=== PATIENT | female | born 1990 | race Caucasian/White ===

== ENCOUNTER 2022-08-01 12:45 | Emergency (ER) | payer SELFPAY ==
[2022-08-01 12:50] VITALS: PULSE 71; RESP 18; TEMP 36.3; O2SAT 99
[2022-08-01] MEDS: Methocarbamol 500 MG TAB PO (13:20)
[2022-08-01] MEDS: Ketorolac 15 MG/ML VIAL IM (13:20)
[2022-08-01] MEDS: Lidocaine 5% Patch 1 PATCH TP (13:21)
--- NOTE | 2022-08-01 13:28 | ED.GENADUL_ITS ---
Discharge Plan Disposition Patient Disposition: Home Discharge Details Clinical Impression: Acute thoracic myofascial strain Primary Care Provider: Meme,Local ED Provider: Lan Mann Home Meds and New Rx's Prescriptions: New methocarbamol 500 mg tablet 500 mg PO TID PRN (Reason: muscle spasm) Qty: 20 0RF ketorolac 10 mg tablet 10 mg PO TID PRN (Reason: pain) Qty: 15 0RF Continued acetaminophen [Acetaminophen Extra Strength] 500 mg Tablet 500 mg PO Q6H PRN Held ibuprofen 600 mg Tablet 600 mg PO Q8H PRN Hold Instructions: While on prescription medication do not take ibuprofen, aspirin, Aleve Discharge Instructions Instructions: Thoracic Back Strain (ED) Additional Instructions: Please take medications as prescribed and perform stretching as tolerated. Feel free to return for new or worsening symptoms otherwise follow-up with primary care provider or urgent care for reassessment if not improving this next week. Referrals: Primary Care Provider [Outside] - 1 week (If not improving) Medical Decision Making Patient presenting to the emergency department for chief complaint of mid upper back pain. Significant other states that patient did bend over and have a twisting type injury 2 weeks ago but pain has been mild up until the last 2 days. Patient denies any other symptoms. She did have a fall a couple months ago with injury to her lower back and coccyx which that has improved drastically. Physical exam shows mainly muscular tenderness to the upper and mid thoracic spinal tissue including right subscapular musculature. Exam is otherwise unremarkable. Patient denies chest pain shortness of breath or other symptoms. Suspect thoracic strain but exam and review of systems show low likelihood of aortic aneurysm, fracture, severe neuropathy or spinal stenosis. We will give patient Robaxin, IM Toradol, and lidocaine patch. Will reassess for clinical effect. Patient had significant improvement of symptoms, better range of motion of upper extremities without pain. Will prescribe ketorolac and Robaxin for patient's continued discomfort. After discussion of diagnosis and plan of care patient has no further needs, questions, or concerns and states clear understanding to return to the emergency department for any worsening symptoms. This documentation was generated using Vidmindation system, please disregard any oddities of phrase or misspellings. HPI General Mode of arrival: ambulatory . Date/Time Provider Initiated Documentation: 08/01/22 12:50 . Limitations to Documentation: no limitations . Information obtained by: patient and RN notes reviewed . History of Present Illness 31 year old F presents to the emergency department with the chief complaint of Upper back pain, described as moderate, with intensity rated at 9. Quality is described as sharp, and is localized to the back. Patient extremity (Right arm). Patient started experiencing this day(s) (2) and it has been constant. Immobilization improves symptom(s), Movement worsens symptoms . Patient notes no other symptoms.. Patient did receive the following treatments prior to arrival, other (Acetaminophen) Related Data Home Medications Medication Instructions Recorded Confirmed acetaminophen 500 mg tablet 500 mg PO Q6H PRN 08/01/22 08/01/22 (Acetaminophen Extra Strength) ibuprofen 600 mg tablet 600 mg PO Q8H PRN 08/01/22 08/01/22 ketorolac 10 mg tablet 10 mg PO TID PRN pain #15 tabs 08/01/22 methocarbamol 500 mg tablet 500 mg PO TID PRN muscle spasm #20 08/01/22 tabs Previous Rx's Medication Instructions Recorded ketorolac 10 mg tablet 10 mg PO TID PRN pain #15 tabs 08/01/22 methocarbamol 500 mg tablet 500 mg PO TID PRN muscle spasm #20 08/01/22 tabs Allergies Allergy/AdvReac Type Severity Reaction Status Date / Time No Known Allergies Allergy Unverified 08/01/22 12:53 General Stated Complaint: Nk/Back Pain ALINA: 4 Review of Systems Constitutional Constitutional: Denies chills and Denies fever(s) Cardiovascular Cardiovascular: Denies chest pain and Denies dyspnea Respiratory Respiratory: Denies cough and Denies dyspnea Gastrointestinal Gastrointestinal: Denies abdominal pain Musculoskeletal Musculoskeletal: Reports as per HPI, Reports back pain and Denies numbness Integumentary/Breasts Skin/Breast: Denies rash Neurologic Neurologic: Denies numbness PFSH All Active Problems (Updated 08/01/22 @ 14:10 by Lan Mann NP) Acute thoracic myofascial strain (Acute) Social History Smoking risk assessment performed?: No Female Reproductive History Menstrual Date of last menstrual period: 07/31/22 Exam Const General: cooperative, no acute distress and not ill appearing Orientation: alert, awake and oriented x3 HENMT Mouth: moist mucous membranes Resp Effort & Inspection: normal respiratory effort, able to speak in complete sentences and no respiratory distress Auscultation: clear to auscultation bilaterally Cardio Rate: regular rate Rhythm: regular rhythm Back/Spine/Pelvis Cervical Spine: normal cervical lordosis, cervical ROM normal and No cervical spinal tenderness Thoracic/Lumbar Spine: pain with thoraco-lumbar ROM, paraspinal tenderness, thoraco-lumbar ROM limited, thoracic spinal tenderness, No lumbar spinal tenderness and other (Thoracic paraspinal spasm) Skin General skin exam: no rashes or lesions noted Neuro General: patient alert, patient awake, patient oriented x3, moves all extremities and no focal motor deficits Extrem Right upper extremity: shoulder/upper arm Details: tenderness Location: other (Subscapular muscular tissue) and abnormal ROM Details: pain with active ROM and pain with passive ROM Course Vital Signs Vital signs: Vital Signs Temperature 36.3 C L 08/01/22 12:50 Pulse 71 08/01/22 12:50 Respiratory Rate 18 08/01/22 12:50 Pulse Oximetry 99 08/01/22 12:50 Temperature 36.3 C L 08/01/22 12:50 Temperature Source Tympanic 08/01/22 12:50 Pulse 71 08/01/22 12:50 Respiratory Rate 18 08/01/22 12:50 Respiratory Effort Normal, Non-Labored 08/01/22 12:56 Blood Pressure Position Sitting 08/01/22 12:50 Pulse Oximetry 99 08/01/22 12:50 Oxygen Delivery Method Room Air 08/01/22 12:50 Oxygen Flow Rate 0 08/01/22 12:50
== END 2022-08-01 14:21 | disposition home or self-care (01) ==
PROVIDERS: Emergency Provider Nurse Practitioner Family
DX: S29.012A Strain of muscle and tendon of back wall of thorax, initial encounter (principal); X50.9XXA Other and unspecified overexertion or strenuous movements or postures, initial encounter
CPT/HCPCS: 96372; 99283; J1885

== ENCOUNTER 2023-02-24 10:57 | Emergency (ER) | payer SELFPAY ==
[2023-02-24 11:06] VITALS: BP 100/43; PULSE 82; RESP 20; TEMP 37.2; O2SAT 100
--- NOTE | 2023-02-24 11:10 | ED.GENADUL_ITS ---
Discharge Plan Disposition Patient Disposition: Home Condition: Stable Discharge Details Clinical Impression: Abdominal pain of unknown cause Primary Care Provider: Meme,Local ED Provider: Levi Carr Home Meds and New Rx's Prescriptions: New ondansetron 4 mg tablet,disintegrating 4 mg PO Q8H PRN (Reason: nausea/vomiting) Qty: 30 0RF famotidine 20 mg tablet 20 mg PO BID Qty: 30 0RF Continued acetaminophen [Acetaminophen Extra Strength] 500 mg Tablet 500 mg PO Q6H PRN methocarbamol 500 mg tablet 500 mg PO TID PRN (Reason: muscle spasm) Qty: 20 0RF ketorolac 10 mg tablet 10 mg PO TID PRN (Reason: pain) Qty: 15 0RF No Action ibuprofen 600 mg Tablet 600 mg PO Q8H PRN Hold Instructions: While on prescription medication do not take ibuprofen, aspirin, Aleve Discharge Instructions Instructions: Famotidine (By mouth), Ondansetron (By mouth), Abdominal Pain (ED) Additional Instructions: You were seen in the emergency department for your lower abdominal pain with nausea and vomiting. Your labs are all reassuring but there is no significant infection, you are not septic, your CT scan is normal and shows no pathology in the abdomen whatsoever. You do not have appendicitis, you do not have large ovarian cysts or ovarian torsion, you do not have a tubo-ovarian abscess, you do not have a small bowel obstruction there are no gallbladder stone seen. It is possible that you may have gastritis as in your medications you are taking multiple forms of NSAIDs. You may need to follow-up with an upper endoscopy where a camera will be inserted down your esophagus into the stomach. I have sent an antinausea medicine called ondansetron to [facility] in [place], take this 20 to 30 minutes before meals 3 times per day to aid in keeping food and fluids down. I have also sent tablets of famotidine which should help if you have an ulcer in your stomach which can be irritating with p.o. intake. Please take this twice per day for 15 days. Please return to the emergency department should you have increasing pain, take [id number] laxatives for your mild constipation. Take Tylenol regularly 1000 mg 4 times per day for generalized pain. Referrals: [facility] [Provider Group] [facility] [Provider Group] [facility] [Provider Group] Medical Decision Making This dictation utilizes [id number] dictation software and may contain unedited grammatical errors. 32 y/o F, Welsh-speaking, presents to ED today with a chief complaint of abdominal pain, nausea/vomiting. Onset and characteristics include severe mid- abdominal pain starting yesterday, worse with palpation, denies , denies diarrhea, endorses feeling hot without fever, denies recent illness. Patient medical history- otherwise healthy, denies surgical abdominal history. Family and social history: noncontributory. Pertinent exam findings / vital signs include + rebound tenderness, McBurney's point tenderness, nontoxic vitals- mildly hypotensive, question result of vomiting, no CVA tenderness bilaterally, benign cardiopulmonary exam. Differential / pathologies of concern include appendicitis, gastroenteritis, SBO, peptic ulcer disease, gastritis, biliary colic, pyelonephritis or infected kidney stone, diverticulitis, volvulus or other emergent abdominal pathology, TOA, Ovarian Cyst. Diagnostic studies of: -CBC, CMP, Lipase, UA, Upreg, CRP/ESR, Lactate, Mg++, CT ABD/Pelvis w/ Contrast. -Urinalysis shows significant proteinuria with ketones and large blood, question renal pathology -CRP elevated with a normal sed rate -CMP fairly benign with mild hypokalemia likely from vomiting, mild hypomagnesemia -CBC shows no leukocytosis -Lipase within normal limits -Lactate negative -CT ABD/Pelvis w/ Contrast shows no acute pathology. Interventions of: -1L NS IVF, IV APAP, IV Toradol, IV Dilaudid, IV Zofran, IV Famotidine. ED Course: Patient had no episodic vomiting here in the emergency department was comfortable with 1 dose of analgesia, labs and CT are all benign but with the patient's significant proteinuria hematuria its possible she just finished her menses. There is no sign of an active kidney stone or infected kidney stone or hydronephrosis. She could have gastroenteritis and I am planning to prescribe ondansetron. Findings not consistent with appendicitis, TOA, ovarian cyst/torsion, SBO, hydronephrosis, ureteral stone, diverticulitis- patient has reassuring labs and normal CT, possible gastroenteritis, but possible passed kidney stone as well. Disposition of Abdominal Pain of Unknown Cause. Assessment/Plan: Counseled the patient on her reassuring labs and normal CT and that there is not likely emergent pathology, I did awake overnight counselor her to try to establish primary care in the area and provided ondansetron by prescription. I counseled her that she may have passed a kidney stone but there is no evidence of any current pathology on imaging. Counseled her to return to the emergency department for any acute worsening especially with inability to handle p.o. intake. Patient verbalized understanding of the plan and return to ED criteria and engaged in shared decision making. Medical Records Medical records reviewed: Yes I reviewed the patient's medical records. Imaging Data Radiologic Study: Imaging: CT Scan Radiologist's impression: CT ABDOMEN PELVIS W EXAM: CT ABDOMEN PELVIS W CLINICAL HISTORY: ABD pain, severe TECHNIQUE: Imaging Protocol: Axial computed tomography images with coronal and sagittal reformatted images were created and reviewed CONTRAST MATERIAL: Intravenous: Omnipaque 350 Contrast volume:100 mL Oral: No COMPARISON: No exams were available for comparison FINDINGS: The examination is limited due to patient motion artifact. ABDOMEN: Lung Bases: Normal where visualized. Liver: Normal density. No measurable mass. Portal, Superior Mesenteric, and Splenic Veins: Unremarkable. Gallbladder and Biliary Tract: No radiodense calculus or dilation. Pancreas: Normal density, no abnormal calcifications or inflammatory process. Spleen: Normal. Adrenals: No masses seen. Kidneys: Normal size, contour and axis. No radiodense stones or obstructive uropathy. No masses seen. Abdominal Aorta: Abdominal portion non-dilated. Bowel: No obstruction or bowel wall thickening. Appendix is unremarkable. Peritoneal Cavity: There is a trace amount of free fluid in the cul-de-sac which is likely physiologic. No free air. Lymph Nodes: Within normal limits. Bones: Within normal limits for the patient's age. Soft Tissues: Unremarkable. PELVIS: Bladder: Symmetric distention, no gross wall thickening. Reproductive Organs: Unremarkable as visualized. Lymph Nodes: Within normal limits. Bones: Within normal limits for the patient's age. IMPRESSION: 1. No acute abdominal or pelvic process. 2. Normal appendix. 3. Findings were discussed with Levi Carr at 1:47 p.m. on 02/24/2023. Lab Data Lab results reviewed: Yes I reviewed the patient's lab results. Labs: Laboratory Tests Range/Units 02/24/23 02/24/23 02/24/23 11:17 11:35 11:35 WBC (4.4-10.8) 10^3/uL 7.77 RBC (3.93-5.22) 10^6/uL 4.81 Hgb (11.2-15.7) g/dL 14.1 Hct (36.0-46.0) % 41.6 MCV (80-95) fL 87 MCH (27.0-33.0) pg 29.3 MCHC (32.0-36.0) % 33.9 RDW (11.7-14.6) % 12.3 Plt Count (130-400) 10^3/uL 195 MPV (8.0-11.0) fL 9.3 Immature Gran % 0.3 Neutrophils % 88.0 Lymphocytes % 5.5 Monocytes % 5.3 Eosinophils % 0.5 Basophils % 0.4 Nucleated RBC % (0.0-0.3) % 0.0 Absolute Neutrophils (1.2-6.7) 10^3/uL 6.84 H Absolute Lymphocytes (1.2-3.4) 10^3/uL 0.43 L Absolute Monocytes (0.1-0.8) 10^3/uL 0.41 Absolute Eosinophils (0.0-0.7) 10^3/uL 0.04 Absolute Basophils (0.0-0.2) 10^3/uL 0.03 ESR (0-20) mm/hr 7 VBG Lactate (0.6-1.4) mmol/L 0.6 Sodium (136-145) mmol/L 139 Potassium (3.5-5.1) mmol/L 3.3 L Chloride (98-107) mmol/L 102 Carbon Dioxide (21.0-32.0) mmol/L 26.0 Anion Gap (3-11) mmol/L 11.0 BUN (7-18) mg/dL 17 Creatinine (0.55-1.02) mg/dL 0.7 Est GFR (CKD-EPI 2020) (mL/min/1.73m2) 119.24 Glucose (74-106) mg/dL 118 H Calcium (8.5-10.1) mg/dL 8.9 Magnesium (1.8-2.4) mg/dL 1.6 L Total Bilirubin (0.2-1.0) mg/dL 0.7 AST (15-37) U/L 23 ALT (14-59) U/L 40 Alkaline Phosphatase (46-116) U/L 53 C-Reactive Protein (0.0-0.3) mg/dL 1.06 H Cancelled Total Protein (6.4-8.2) g/dL 7.8 Albumin (3.4-5.0) g/dL 3.9 Lipase (16-77) U/L 32 Urine Color (Yellow) Yellow Urine Clarity (Clear) Sl Cloudy Urine pH (5-8) 7.0 Ur Specific [place] (1.005-1.025) 1.025 Urine Protein (Negative) mg/dL >=300 H Urine Ketones (Negative) mg/dL 40 H Urine Blood (Negative) Large H Urine Nitrite (Negative) Negative Urine Bilirubin (Negative) Negative Urine Urobilinogen (Up to 0.2) mg/dL 1.0 H Ur Leukocyte Esterase (Negative) Negative Urine RBC (0-2) HPF 20-50 H Urine WBC (0-5) HPF 0-2 Ur Epithelial Cells (Negative) HPF Moderate Urine Crystals (Negative) HPF Negative Urine Bacteria (Negative) HPF Moderate Urine Casts (Negative) LPF Negative Urine Mucus (Negative) Moderate Ur Culture Indicated? No/Sq. Contamination Urine Glucose (Negative) mg/dL Negative HPI General Date/Time Provider Initiated Documentation: 02/24/23 11:10 . HPI Narrative: 32 year-old female presents to ED today by POV/ambulating, Welsh-speaking only, with a chief complaint of severe centralized abdominal pain, nausea, vomiting with onset yesterday. Quality described as diffuse severe abdominal pain, no radiation to dysuria, endorses some constipation, denies overt fever but feels hot, endorses nausea/vomiting, but has nothing left to vomit at this time, denies chest pain/syncope. Severity is described as 10/10. Palliating factors include nothing specific attempted. Provoking factors include nothing specific. Events leading up to the incident/Associated Symptoms: Patient denies possibility of , denies history of abdominal surgeries. Patient not anticoagulated. Related Data Home Medications Medication Instructions Recorded Confirmed acetaminophen 500 mg tablet 500 mg PO Q6H PRN 08/01/22 08/01/22 (Acetaminophen Extra Strength) ibuprofen 600 mg tablet 600 mg PO Q8H PRN 08/01/22 08/01/22 ketorolac 10 mg tablet 10 mg PO TID PRN pain #15 tabs 08/01/22 methocarbamol 500 mg tablet 500 mg PO TID PRN muscle spasm #20 08/01/22 tabs famotidine 20 mg tablet 20 mg PO BID gastritis #30 tabs 02/24/23 ondansetron 4 mg disintegrating 4 mg PO Q8H PRN nausea/vomiting 02/24/23 tablet #30 tabs Previous Rx's Medication Instructions Recorded ketorolac 10 mg tablet 10 mg PO TID PRN pain #15 tabs 08/01/22 methocarbamol 500 mg tablet 500 mg PO TID PRN muscle spasm #20 08/01/22 tabs famotidine 20 mg tablet 20 mg PO BID gastritis #30 tabs 02/24/23 ondansetron 4 mg disintegrating 4 mg PO Q8H PRN nausea/vomiting 02/24/23 tablet #30 tabs Allergies Allergy/AdvReac Type Severity Reaction Status Date / Time No Known Allergies Allergy Unverified 08/01/22 12:53 General Stated Complaint: Abd Prob ALINA: 3 Review of Systems All systems reviewed & are unremarkable except as noted in HPI and below PFSH All Active Problems (Updated 02/24/23 @ 13:59 by DANYELLE Holloway) Abdominal pain of unknown cause (Acute) Social History Smoking/Tobacco Use Status: Never Smoking risk assessment performed?: Yes Alcohol Intake: never Drug use: Never Substance use type: does not use Housing: house Do you feel safe at home: Yes Do you feel safe in your relationship?: Yes Exam Narrative Exam Narrative: GENERAL APPEARANCE: Well-nourished, non-toxic, awake and alert, atraumatic, no acute distress. SKIN: Warm, normal for ethnicity, dry, intact, without rashes/lesions/ulcerations. HEAD: Normocephalic, atraumatic, normal hair distribution for gender/age. EYES: Pupils PERRLA, EOMs intact without nystagmus, normal conjunctiva, no exudates on lids/lashes. ENT: Nares patent, no circumoral cyanosis, no facial swelling NECK: Supple, trachea midline, painless cervical ROM. LUNGS/CHEST: Lungs CTA bilaterally - no rhonchi/rales/wheezes diffusely, non- labored respirations, normal A/P diameter, symmetrical expansion, no chest wall deformity HEART (CV/PV): Regular rate and rhythm without murmur, no peripheral edema, no JVD. ABDOMEN: Normoactive bowel sounds, soft, non-distended, voluntary guarding, exquisite tenderness with rebound tenderness across mid-abdomen, no CVA tenderness to percussion bilaterally, McBurney's point tenderness, negative Welch's sign. MSK: Normal ROM, no swelling/deformity to bilateral UEs or LEs, moving all extremities without weakness, no cyanosis, spine midline without tenderness, normal curvature. NEURO: Mental Status AAOx4 - alert to person, place, time, events No facial droop, no forehead involvement. Motor: No focal weakness - strength 5/5 in bilateral UEs and LEs, proximal and distal, symmetric. Sensory: sensation intact to light touch globally. Gait normal: patient ambulated without ataxia into ED room. PSYCH: euthymic, cooperative, pleasant, appropriate speech Course Vital Signs Vital signs: Vital Signs Temperature 37.2 C 02/24/23 11:06 Pulse 82 02/24/23 11:06 Respiratory Rate 20 02/24/23 11:06 Blood Pressure 100/43 L 02/24/23 11:06 Pulse Oximetry 100 02/24/23 11:06 Temperature 37.2 C 02/24/23 11:06 Temperature Source Oral 02/24/23 11:06 Pulse 82 02/24/23 11:06 Respiratory Rate 20 02/24/23 11:06 Blood Pressure 100/43 L 02/24/23 11:06 Blood Pressure Position Sitting 02/24/23 11:06 Pulse Oximetry 100 02/24/23 11:06 Oxygen Delivery Method Room Air 02/24/23 11:06 Oxygen Flow Rate 0 02/24/23 11:06
--- NOTE | 2023-02-24 11:15 | DI.CT_ITS ---
Exam(s) CT ABDOMEN PELVIS W EXAM: CT ABDOMEN PELVIS W CLINICAL HISTORY: ABD pain, severe TECHNIQUE: Imaging Protocol: Axial computed tomography images with coronal and sagittal reformatted images were created and reviewed CONTRAST MATERIAL: Intravenous: Omnipaque 350 Contrast volume:100 mL Oral: No COMPARISON: No exams were available for comparison FINDINGS: The examination is limited due to patient motion artifact. ABDOMEN: Lung Bases: Normal where visualized. Liver: Normal density. No measurable mass. Portal, Superior Mesenteric, and Splenic Veins: Unremarkable. Gallbladder and Biliary Tract: No radiodense calculus or dilation. Pancreas: Normal density, no abnormal calcifications or inflammatory process. Spleen: Normal. Adrenals: No masses seen. Kidneys: Normal size, contour and axis. No radiodense stones or obstructive uropathy. No masses seen. Abdominal Aorta: Abdominal portion non-dilated. Bowel: No obstruction or bowel wall thickening. Appendix is unremarkable. Peritoneal Cavity: There is a trace amount of free fluid in the cul-de-sac which is likely physiologi c. No free air. Lymph Nodes: Within normal limits. Bones: Within normal limits for the patient's age. Soft Tissues: Unremarkable. PELVIS: Bladder: Symmetric distention, no gross wall thickening. Reproductive Organs: Unremarkable as visualized. Lymph Nodes: Within normal limits. Bones: Within normal limits for the patient's age. IMPRESSION: 1. No acute abdominal or pelvic process. 2. Normal appendix. 3. Findings were discussed with Levi Carr at 1:47 p.m. on 02/24/2023. RADIATION DOSE DELIVERED: Total DLP DATA REPOSITORY: All CT scans at this facility are submitted to the National Radiology Data Registry (NRDR) Dose Index Registry (DIR) with the [employer] (ACR). RADIATION OPTIMIZATION: All CT scans at this facility use at least one of these dose optimization te chniques: automated exposure control; mA and/or kV adjustment per patient size (includes targeted exa ms where dose is matched to clinical indication); or iterative reconstruction.
[2023-02-24 11:26] LABS: Bilirubin Negative (Negative); Blood Large (Negative); Clarity Sl Cloudy (Clear); Glucose Negative (Negative); Ketones 40 mg/dL (Negative); Leukocyte Esterase Negative (Negative); Nitrite Negative (Negative); Specific Gravity 1.025 (1.005-1.025)
[2023-02-24 11:33] LABS: Bacteria Moderate HPF (Negative); C & S Indicated? No/Sq. Contamination; Casts Negative LPF (Negative); Crystals Negative HPF (Negative); Epithelial Cells Moderate HPF (Negative); Mucus Moderate (Negative); RBC 20-50 HPF (0-2); WBC 0-2 HPF (0-5)
[2023-02-24 11:42] LABS: Abs Immature Grans 0.02 10^3/uL (0.0-0.06); Absolute Basophil Count 0.03 10^3/uL (0.0-0.2); Absolute Eosinophil Count 0.04 10^3/uL (0.0-0.7); Absolute Lymphocyte Count 0.43 10^3/uL (1.2-3.4); Absolute Monocyte Count 0.41 10^3/uL (0.1-0.8); Absolute Neutrophil Count 6.84 10^3/uL (1.2-6.7); Basophils % 0.4; Eosinophils % 0.5; HCT 41.6 % (36.0-46.0); HGB 14.1 g/dL (11.2-15.7); Immature Grans % 0.3; Lactate 0.6 mmol/L (0.6-1.4); Lymphocytes % 5.5; MCH 29.3 pg (27.0-33.0); MCHC 33.9 % (32.0-36.0); MCV 87 fL (80-95); MPV 9.3 fL (8.0-11.0); Monocytes % 5.3; Platelet Count 195 10^3/uL (130-400); RBC 4.81 10^6/uL (3.93-5.22); RDW 12.3 % (11.7-14.6); RDW-SD 39.2 fL; WBC 7.77 10^3/uL (4.4-10.8)
[2023-02-24 11:44] LABS: ESR 7 mm/hr (0-20)
[2023-02-24 11:59] LABS: ALT 40 U/L (14-59); AST 23 U/L (15-37); Albumin 3.9 g/dL (3.4-5.0); Alkaline Phosphatase 53 U/L (46-116); BUN 17 mg/dL (7-18); Bilirubin, Total 0.7 mg/dL (0.2-1.0); C-Reactive Protein 1.06 mg/dL (0.0-0.3); CREATININE 0.7 mg/dL (0.55-1.02); Calcium 8.9 mg/dL (8.5-10.1); Chloride 102 mmol/L (98-107); Estimated GFR 119.24 (mL/min/1.73m2); Glucose 118 mg/dL (74-106); Lipase 32 U/L (16-77); Magnesium 1.6 mg/dL (1.8-2.4); Potassium 3.3 mmol/L (3.5-5.1); Sodium 139 mmol/L (136-145); Total Protein 7.8 g/dL (6.4-8.2)
[2023-02-24] MEDS: Normal Saline 1,000 ML 1000 ML IV (12:01)
[2023-02-24] MEDS: Ketorolac 15 MG/ML VIAL IVP (12:03)
[2023-02-24] MEDS: Ondansetron 4 MG/2 ML VIAL IVP (12:03)
[2023-02-24] MEDS: FAMOTIDINE 20 MG in Normal Saline 100 ML 400 MG IVPB (12:03)
[2023-02-24] MEDS: HYDROmorphone 2 MG/ML SYR 0.5 MG IVP (12:04)
[2023-02-24] MEDS: ACETAMINOPHEN 1,000 MG/100 ML BTL 400 MG IVPB (12:05)
[2023-02-24] MEDS: Omnipaque 350 MG/ML 500 ML BTL-Imaging package IJ (12:55)
[2023-02-24] MEDS: Normal Saline Flush 10 ML SYR IVP (12:56)
[2023-02-24] MEDS: Normal Saline - Diluent 50 ML VIAL IJ (12:57)
[2023-02-24 14:16] VITALS: BP 91/49; PULSE 68; TEMP 36.7; O2SAT 99
== END 2023-02-24 14:26 | disposition home or self-care (01) ==
PROVIDERS: Emergency Provider Physician Assistant
DX: R10.84 Generalized abdominal pain (principal); R11.2 Nausea with vomiting, unspecified
CPT/HCPCS: 36415; 80053; 81025; 83690; 85652; 96361; 96374; 96375; 99285; 74177; 81003; 81015; 83605; 83735; 85025; 86140; 99284; J0131; J1170; J1885; J2405

== ENCOUNTER 2024-03-30 02:03 | Outpatient (CLI) | payer SELFPAY ==
--- NOTE | 2024-03-30 | DI.RAD_ITS ---
Exam(s) XR CHEST 2V PA LATERAL EXAM: XR CHEST 2V PA LATERAL CLINICAL HISTORY: Chest pain, R07.9 TECHNIQUE: 2D digital imaging was performed. Two views. COMPARISON: No exams were available for comparison FINDINGS: HEART: Normal size. Aorta: Not dilated. PULMONARY VASCULATURE: Normal. MEDIASTINUM: Unremarkable. LUNGS: Clear. PLEURAL SPACE: No pleural effusion or pneumothorax. BONE:Unremarkable for age. SOFT TISSUES: Unremarkable. IMPRESSION: No acute abnormality. DATA REPOSITORY: RADIATION DOSE DELIVERED:
== END 2024-03-30 02:23 ==
LOC: DI 02:03
PROVIDERS: Visit Provider Nurse Practitioner Family
DX: R07.9 Chest pain, unspecified (principal)
CPT/HCPCS: 71046